=== PATIENT | female | born 1945 | race Two or more races ===

== ENCOUNTER → 2019-01-13 | Outpatient (CLI) | payer OTHER ==
[~2019-01-13] MED LIST: LIPITOR40 MG; METFORMIN HCL500 MG
== END | disposition home or self-care (01) ==
LOC: NUCLEAR 13:52
DX: M81.0 Age-related osteoporosis without current pathological fracture (principal)

== ENCOUNTER 2021-01-01 14:07 | Outpatient (CLI) | payer OTHER | END 2021-01-01 14:09 | disposition home or self-care (01) | LOC: NUCLEAR 14:07 | PROVIDERS: ATTEND General Practice | DX: M81.0 Age-related osteoporosis without current pathological fracture (principal); Z13.820 Encounter for screening for osteoporosis ==

== ENCOUNTER 2021-01-24 09:21 | Outpatient (CLI) | payer OTHER | END 2021-01-24 09:28 | disposition home or self-care (01) | LOC: SONOGRAMA 09:21 | PROVIDERS: ATTEND General Practice | DX: E03.8 Other specified hypothyroidism (principal) ==

== ENCOUNTER 2022-03-03 08:46 | Outpatient (CLI) | payer OTHER | END 2022-03-03 09:03 | disposition home or self-care (01) | LOC: MAMO-SONO 08:46 | PROVIDERS: ATTEND General Practice | DX: Z12.31 Encounter for screening mammogram for malignant neoplasm of breast (principal) ==

== ENCOUNTER 2024-05-16 12:29 | Emergency (ER) | payer OTHER ==
[~2024-05-16] VITALS: Ht 157.5 cm; Wt 77.1 kg
[2024-05-16] MEDS ORDERED: TRIJARDY XR 101 EACH (12:39)
[2024-05-16 12:40] VITALS: BP 100/64; O2SAT 99
[2024-05-16] MEDS ORDERED: DEXAMETHASONE SODIUM PHOSPHATE 4 MG/ML VIAL IM STA (15:11)
== END 2024-05-16 18:02 | disposition home or self-care (01) ==
LOC: ER 12:30
DX: S09.8XXA Other specified injuries of head, initial encounter (principal); W18.39XA Other fall on same level, initial encounter; Y93.89 Activity, other specified; Y92.012 Bathroom of single-family (private) house as the place of occurrence of the external cause; E11.9 Type 2 diabetes mellitus without complications; Z79.84 Long term (current) use of oral hypoglycemic drugs; I10 Essential (primary) hypertension